=== PATIENT | male | born 1940 | race Caucasian/White ===

== ENCOUNTER 2021-03-12 09:26 | Emergency (ER) | payer MEDICARE ==
[~2021-03-12] VITALS: Ht 167.6 cm; Wt 86.4 kg
[2021-03-12 09:32] VITALS: Ht 167.6 cm; Wt 86.4 kg
[2021-03-12 10:13] LABS: CALC OSMOLALITY 287 mosm/kg (275-300); CALCIUM 8.5 mg/dL (8.5-10.1); CARBON DIOXIDE 23.9 mmol/L (21.0-32.0); CHLORIDE - SERUM 105 mmol/L (98-107); GLUCOSE 211 mg/dL (74-106); POTASSIUM - SERUM 4.2 mmol/L (3.5-5.1); SODIUM 137 mmol/L (136-145); UREA NITROGEN 34 mg/dL (7-18); eGFR NON AFRICAN AMERICAN 34 mL/min (90-120)
[2021-03-12 10:23] LABS: BASOPHILS 0.3 % (0-2); EOSINOPHILS 0.7 % (0-7); HEMATOCRIT 32.2 % (42.0-54.0); IMMATURE GRANULOCYTES 0.1 % (0-5); LYMPHOCYTE ABS# 1.02 10x3/uL (1.32-3.57); LYMPHOCYTES 15.3 % (15-50); MCH 28.9 pg (26.0-34.0); MCHC 31.1 g/dL (31.0-37.0); MCV 93.1 fL (80.0-100.0); MEAN PLATELET VOLUME 11.9 fL (7.4-10.4); MONOCYTES 14.2 % (2-11); NEUTROPHIL ABS# 4.62 10x3/uL (1.78-5.38); NEUTROPHILS 69.4 % (40-80); PLATELET COUNT 257 10x3/uL (130-400); RBC 3.46 10x6/uL (4.20-6.10); WBC 6.7 10x3/uL (4.8-10.8)
[2021-03-12 10:28] LABS: APTT 24.7 SECONDS (22.8-39.4)
[2021-03-12 10:30] LABS: ALKALINE PHOSPHATASE 134 U/L (30-120); ALT (SGPT) 29 U/L (10-68); BILIRUBIN - TOTAL 0.69 mg/dL (0.2-1.3); CKMB 1.6 U/L (0.0-3.6); CREATINE KINASE 52 UL (21-232); PRO BNP 10334 pg/mL (0-450); PROTEIN - SERUM 6.4 g/dL (6.4-8.2)
[2021-03-12 10:50] LABS: PROTIME 13.7 SECONDS (11.6-15.0)
[2021-03-12 10:51] LABS: INR 1.16 (0.85-1.17)
[2021-03-12 12:05] VITALS: BP 120/77
== END 2021-03-12 12:05 | disposition home or self-care (01) ==
LOC: D.ER 09:26
PROVIDERS: Student in an Organized Health Care Education/Training Program
DX: I50.9 Heart failure, unspecified (principal); E11.9 Type 2 diabetes mellitus without complications; R06.02 Shortness of breath